=== PATIENT | female | born 1990 | race Two or more races ===

== ENCOUNTER 2017-11-15 11:20 | Inpatient (IN) | payer OTHER ==
[~2017-11-15] VITALS: Ht 167.6 cm; Wt 53.5 kg
== END 2017-11-23 14:02 | disposition designated cancer center or children's hospital (05) | DRG 444 ==
LOC: ER 11:20 → SEC-K 11-16 07:30 → MEDI 11-16 07:30 → SEC-K 11-16 11:15 → MEDI 11-16 11:15
PROC: BF37ZZZ Magnetic Resonance Imaging (MRI) of Pancreas (ICD-10-PCS; 2017-11-16)
PROC: 0F798ZZ Dilation of Common Bile Duct, Via Natural or Artificial Opening Endoscopic (ICD-10-PCS; principal; 2017-11-19)
DX: K80.71 Calculus of gallbladder and bile duct without cholecystitis with obstruction (principal); K85.10 Biliary acute pancreatitis without necrosis or infection; K29.00 Acute gastritis without bleeding